=== PATIENT | male | born 1935 | race Caucasian/White ===

== ENCOUNTER → 2017-12-18 | Day surgery (SDC) | payer MEDICARE, OTHER ==
[~2017-12-18] VITALS: Ht 172.7 cm; Wt 79.0 kg
[~2017-12-18] MED LIST: ATOR20TA15 PO; BUPIVACAINE/EPINEPHRINE 0.75% PF 30 ML VIAL ONE; CARV3.12 PO; CHLORHEXIDINE GLUCONATE 2 % 1 PACK (2 CLOTHS) TOPICAL PRN; LACTATED RINGER'S 1000 ML IV PRN; LISI10TA3 PO; METF500T PO; METOPROLOL TARTRATE 25 MG TAB PO PRN; MUPIROCIN 2% OINT 22 GM TUBE ONE; OCUVTAB4 PO; POVIDONE IODINE 5% (ANTISEPSIS KIT) 4 APPLICATIONS EACH NARE PRN; SODIUM CHLORID 0.9% 500 ML IV PRN; SUGAMMADEX SODIUM 200 MG/2 ML VIAL IV PUSH ONE; WARF-18 PO; WARF-23 PO; ceFAZolin 1,000 MG/NS 100 ML IV SCH; oxyCODONE/ACETAMINOPHEN 5 MG/325 MG TAB ONE
[2017-12-18 10:18] LABS: PROTHROMBIN TIME - PATIENT 10.6 SEC (9.8-11.6)
[2017-12-18 15:00] VITALS: BP 169/97; PULSE 88; RESP 16; TEMP 98; O2SAT 96
--- NOTE | 2017-12-19 16:59 | EKG ---
Date Performed: 12/18/2017 Time Performed: 09:59:00 PTAGE: 82 years EKG: ATRIAL FIBRILLATION SEPTAL MYOCARDIAL INFARCTION INFERIOR MYOCARDIAL INFARCTION ABNORMAL EC G PREVIOUS TRACING 02/03/2007 @ 11.04.16 Since the previous tracing, no significant change noted DOCTOR: Latanya Tate Interpretating Date/Time 12/19/2017 16:58:12
--- NOTE | 2017-12-26 10:24 | PD.OP ---
Operative Report Date of Surgery: December 18, 2017 Preoperative Diagnosis: (1) Melanoma of scalp Postoperative Diagnosis: (1) Melanoma of scalp Procedure: Wide local excision of posterior scalp melanoma, 1.8 cm (05551) Complex wound closure, 5 cm (95808) Surgeon: Dez Beckman Steam Tank Operator(s): . Operation and Findings: 82-year-old male who presented to clinic with biopsy-proven posterior scalp melanoma (risk benefits and alternative treatments were discussed. All questions were answered and the patient expressed understanding. The patient elected to assume the risks of wide local excision of the above skin lesion. Informed consent was obtained. The surgical site was marked in the preoperative holding bay. The patient was given antibiotics on-call to the operating room. The patient was taken to the operating room and all pressure points were padded. A surgical timeout was performed. After the smooth induction of general anesthesia, the skin lesion was outlined as was additional 5 mm circumferential margins. The surgical site was instilled with quarter percent Marcaine with epinephrine. The surgical site was prepped and draped in the usual sterile fashion. The skin lesion was excised, marked for orientation , and sent for permanent pathology. Hemostasis was obtained. The adjacent skin was widely undermined superficial to the galea. This allowed for the skin edges to be brought together without undue tension. Hemostasis was again ensured. The skin was closed in multiple layers including 3-0 Vicryl in a deep dermal interrupted fashion, followed by 4-0 nylons in a interrupted vertical mattress fashion. Surgical site was cleaned. The incision was dressed with mupirocin ointment Xeroform gauze dry gauze fluffs and a craniotomy stockinette. All needle sponge and instrument counts were correct 2. The patient was awoken from anesthesia and arrived stable doing well to the PACU. Dez Beckman MD December 26, 2017 10:24
== END | disposition home or self-care (01) ==
LOC: PHSDC 09:06
PROVIDERS: ATTEND Student in an Organized Health Care Education/Training Program
DX: D03.4 Melanoma in situ of scalp and neck (principal); I10 Essential (primary) hypertension; E11.9 Type 2 diabetes mellitus without complications; I48.91 Unspecified atrial fibrillation; Z01.818 Encounter for other preprocedural examination; Z79.01 Long term (current) use of anticoagulants
CPT/HCPCS: 00300; 11622; 13121; 36415; 85610; 88305; 93005; J0690; J3010; J7120